=== PATIENT | female | born 1990 | race Caucasian/White ===

== ENCOUNTER 2021-05-11 14:08 | Outpatient (REF) | payer MEDICAID, SELFPAY ==
--- NOTE | 2021-05-12 11:28 | MHC.AU.ANO ---
Adult Audiological Evaluation Date of Visit: 05/11/21 Animal Chiropractor Used: Not Applicable Reason for Appointment: Audiologic evaluation due to long-standing history of right ear hearing loss. Barbie reports she thinks she has had this loss all her life; however, it has gotten worse over the past few years. She does not experience any dizziness or tinnitus, and there is no family history of hearing loss. Barbie notes she was told by her mother that as a young child when cleaning her ears, there was an injury to the right ear. She also reports as a teenager, a piece of shell was removed from her right ear. Has hearing been tested previously?: Yes Previous Hearing Test Results: 2014 in the [place]. Results are not available for review. Hearing Handicap Inventory: HHIE SCORE: 20 Based on HHIE score, patient has: Mild to moderate perceived hearing handicap Ear History: Ear used on the phone: Left Ear History of occupational noise exposure?: No History: No Medical History: Medical History: Unremarkable Medical History Medication List: None reported Otoscopy: Right Ear: Unremarkable Left Ear: Unremarkable Tympanometry: Tympanometry performed due to: To assess integrity of the middle ear system Right Ear: Reduced Middle Ear Compliance (Type As) Left Ear: Reduced Middle Ear Compliance (Type As) Otoacoustic Emissions Frequency Range Used: 1.6-8 kHz Right Ear Results: Absent Emissions Analysis: Reduced/Absent emissions suggest cochlear dysfunction Left Ear Results: Present [id number] & 9435-7467 Hz. Absent 4500, 5000, & 8000 Hz Analysis: Present emissions suggest normal cochlear function Rules out peripheral hearing loss greater than a mild degree Reduced/Absent emissions suggest cochlear dysfunction Hearing Evaluation: Transducer(s) Used: Insert Earphones Bone Conduction Method: Conventional Audiometry Stimuli Used: Pure Tones Right Ear: Description of Hearing: Profound rising to moderately-severe mixed hearing loss. Left Ear: Description of Hearing: Normal hearing thresholds 250-6000 Hz dropping to a moderately-severe sensorineural hearing loss at 8000 Hz. Speech Recognition Threshold (SRT): Method Used: Monitored Live Voice Stimuli Used: Spondee Words Right Ear: 60 dB HL Left Ear: 5 dB HL Word Discrimination: Method: Recorded Lists Word Lists Used: NU-6 Right Ear: 24% at 90 dB HL Left Ear: 100% at 55 dB HL Most Comfortable Level (MCL): Right Ear: 90 dB HL Left Ear: DNT Recommendations: - Referral to Ear, Nose, and Throat is recommended for further assessment of the significant asymmetric hearing loss. - Discussed possible trial with a CROS hearing aid system. If medically cleared by the ENT, and Barbie would like to pursue use of a CROS hearing aid system, she may schedule a Hearing Aid Evaluation at this office. - Audiologic re-evaluation is advised in one year, or sooner if a change in hearing ability is suspected. Will send a reminder card. Diagnosis: Primary Diagnosis: H90.3 Bilateral Sensorineural Hearing Loss Services Performed: Comprehensive Audiological Evaluation (CPT 57881) Diagnostic Otoacoustic Emissions (CPT 06669, 26+TC) Tympanometry (CPT 87879) Signature: Provider: Rupali Gold, CCC-A
== END 2021-05-11 14:09 | disposition home or self-care (01) ==
LOC: HO.SH 14:08
PROVIDERS: PCP Nurse Practitioner Family; Visit Provider Internal Medicine
DX: Z01.118 Encounter for examination of ears and hearing with other abnormal findings (principal); H90.3 Sensorineural hearing loss, bilateral
CPT/HCPCS: 92557; 92567; 92588

== ENCOUNTER 2024-03-04 16:00 | Outpatient (REF) | payer OTHER, SELFPAY | END 2024-03-04 16:01 | disposition home or self-care (01) | LOC: HO.SH 16:00 | PROVIDERS: Visit Provider Nurse Practitioner Family | DX: Z01.118 Encounter for examination of ears and hearing with other abnormal findings (principal); H90.6 Mixed conductive and sensorineural hearing loss, bilateral | CPT/HCPCS: 92557; 92567; 92588 ==